=== PATIENT | male | born 1935 | race Caucasian/White ===

== ENCOUNTER → 2017-06-18 | Outpatient (CLI) | payer MEDICARE ==
[2017-06-18 17:12] LABS: Anion Gap 10 mmol/L; Blood Urea Nitrogen 29 mg/dL (9-20); Calcium 9.5 mg/dL (8.4-10.2); Carbon Dioxide 27 mmol/L (22-30); Chloride 107 mmol/L (98-107); Glucose 113 mg/dL (74-99); Non-African American GFR(MDRD) 58 (>60 ml/min/1.73 sqM); Potassium 4.8 mmol/L (3.5-5.1); Sodium 144 mmol/L (137-145)
== END | disposition home or self-care (01) ==
LOC: LABWHC1 16:30
PROVIDERS: ATTEND Internal Medicine Cardiovascular Disease
DX: J44.9 Chronic obstructive pulmonary disease, unspecified (principal); I34.1 Nonrheumatic mitral (valve) prolapse; I44.2 Atrioventricular block, complete; I50.9 Heart failure, unspecified
CPT/HCPCS: 36415; 80048; 83880

== ENCOUNTER → 2018-10-01 | Outpatient (CLI) | payer MEDICARE ==
[2018-10-01 14:35] LABS: Basophils % (A) 1 %; Eosinophils # (A) 0.1 k/uL (0-0.7); Eosinophils % (A) 2 %; HGB 13.9 gm/dL (13.0-17.5); Lymphocytes # (A) 1.7 k/uL (1.0-4.8); Lymphocytes % (A) 37 %; MCH 32.5 pg (25.0-35.0); MCHC 33.2 g/dL (31.0-37.0); MCV 97.8 fL (80.0-100.0); Mean Platelet Volume 6.8; Monocytes # (A) 0.3 k/uL (0-1.0); Monocytes % (A) 7 %; Neutrophils # (A) 2.4 k/uL (1.3-7.7); Neutrophils % (A) 51 %; Platelet Count 163 k/uL (150-450); RBC 4.29 m/uL (4.30-5.90); RDW 12.3 % (11.5-15.5); WBC 4.7 k/uL (3.8-10.6)
[2018-10-01 21:37] LABS: Albumin 4.3 g/dL (3.80-4.90); Albumin/Globulin Ratio 2.39 (1.20-2.10); Anion Gap 9.8 mmol/L (4.00-12.00); Calcium 8.9 mg/dL (8.7-10.3); Carbon Dioxide 25.2 mmol/L (21.6-31.8); Globulin 1.8 g/dL (2.1-3.7); LDL Cholesterol,Calculated 78.4 mg/dL (0.0-131.0); Potassium 4.5 mmol/L (3.5-5.5); Total Protein 6.1 g/dL (6.2-8.2); VLDL Calculation 12.6 mg/dL (5.00-40.00)
[2018-10-01 21:43] LABS: T4, Free (Free Thyroxine) 1.2 ng/dL (0.80-1.80)
[2018-10-01 21:49] LABS: Prostate Specific Antigen 42.5 ng/mL (0.0-6.5)
== END | disposition home or self-care (01) ==
LOC: LABWHC1 13:49
PROVIDERS: ATTEND Internal Medicine
DX: Z00.00 Encounter for general adult medical examination without abnormal findings (principal); I10 Essential (primary) hypertension; Z12.5 Encounter for screening for malignant neoplasm of prostate
CPT/HCPCS: 36415; 80053; 80061; 84153; 84439; 84443; 85025